=== PATIENT | male | born 2000 | race Hispanic/Latino ===

== ENCOUNTER → 2020-04-24 | Outpatient (CLI) | payer SELFPAY | LOC: M LABSMTC 09:45 | PROVIDERS: ATTEND Pediatrics | DX: Z11.52 Encounter for screening for COVID-19 (principal) ==

== ENCOUNTER → 2020-11-02 | Outpatient (REF) ==
[2020-11-03 06:11] LABS: RUBEOLA IgG ANTIBODY 71.5 AU/mL (Immune >16.4)
== END ==
LOC: M LAB 11:58
PROVIDERS: ATTEND Nurse Practitioner Adult Health
DX: Z02.89 Encounter for other administrative examinations (principal)

== ENCOUNTER 2021-06-21 07:55 | Emergency (ER) | payer OTHER, SELFPAY ==
[~2021-06-21] VITALS: Ht 167.6 cm; Wt 65.9 kg
[2021-06-21 07:55] VITALS: BP 154/94
[2021-06-21] MEDS ORDERED: ACET-907 PO (08:04)
[2021-06-21] MEDS ORDERED: IBUP200C33 PO (08:04)
[2021-06-21] MEDS ORDERED: IBUPROFEN 600MG TAB PO ONE (08:30)
== END 2021-06-21 09:45 | disposition home or self-care (01) ==
LOC: M ED 07:55
DX: M25.561 Pain in right knee (principal); M25.562 Pain in left knee; F10.10 Alcohol abuse, uncomplicated

== ENCOUNTER → 2021-07-16 | Outpatient (CLI) | payer OTHER ==
[~2021-07-16] MED LIST: ACET-907 PO; IBUP200C33 PO
== END ==
LOC: M RAD 07:05
PROVIDERS: ATTEND Orthopaedic Surgery
DX: M23.303 Other meniscus derangements, unspecified medial meniscus, right knee (principal)

== ENCOUNTER 2021-08-21 13:51 | Outpatient (RCR) | payer OTHER | END 2021-08-22 | LOC: M PT 13:51 | PROVIDERS: ATTEND Orthopaedic Surgery | DX: M25.561 Pain in right knee (principal) ==

== ENCOUNTER 2021-09-10 12:40 | Outpatient (RCR) | payer OTHER | END 2021-09-22 | LOC: M PT 12:40 | PROVIDERS: ATTEND Orthopaedic Surgery | DX: M25.561 Pain in right knee (principal) ==

== ENCOUNTER → 2024-06-09 | Outpatient (REF) | payer SELFPAY | LOC: M LAB REF 17:38 | PROVIDERS: ATTEND Physician Assistant | DX: Z28.39 Other underimmunization status (principal) ==